=== PATIENT | male | born 1970 | race Caucasian/White ===

== ENCOUNTER → 2019-02-08 | Outpatient (CLI) | payer OTHER ==
[~2019-02-08] MED LIST: ATOR40TA PO; IBUP600 PO; Omeprazole20 M1 PO; ZESTORETIC 20-121 E1
== END | disposition home or self-care (01) ==
LOC: PLD 08:01 → LAB SHORT 08:01
DX: D48.5 Neoplasm of uncertain behavior of skin (principal)
CPT/HCPCS: 88305

== ENCOUNTER → 2019-04-17 | Outpatient (CLI) | payer OTHER | END | disposition home or self-care (01) | LOC: PLD 08:03 → LAB SHORT 08:03 | DX: D22.62 Melanocytic nevi of left upper limb, including shoulder (principal) | CPT/HCPCS: 88305 ==